=== PATIENT | female | born 1960 | race Caucasian/White ===

== ENCOUNTER 2017-04-08 09:40 | Day surgery (SDC) | payer OTHER ==
[2017-04-08 10:19] VITALS: BMI 27.4
[2017-04-08 11:14] VITALS: TEMP 98.2
[2017-04-08 12:20] VITALS: BP 142/77; PULSE 85
--- NOTE | 2017-04-09 13:25 | PATH ---
Surgical Pathology Report Patient Name: SAMANTHA PICHARDO [facility]. Rec. #: [id number] /Age/Gender: 1960 (Age: 56) / F Account: [id number] Location: [facility]-ENDOSCOPY Taken: 04/08/2017 Received: 04/08/2017 Reported: 04/09/2017 Physicians: Keven Casiano M.D. Specimen(s) Received BX ESOPHAGITIS, ULCERATED Clinical History Burning sensation in throat, dysphagia Reflux with esophagitis Final Diagnosis ESOPHAGUS, ULCERATED, BIOPSY: ULCERATED SQUAMOCOLUMNAR JUNCTIONAL MUCOSA WITH ASSOCIATED MARKED ACTIVE AND CHRONIC INFLAMMATION AND REFLUX TYPE CHANGES. NO INTESTINAL METAPLASIA (MONTEJO'S ESOPHAGUS) IDENTIFIED. NO HISTOLOGIC EVIDENCE OF VIRAL CYTOPATHIC EFFECT. NO FUNGAL ORGANISMS IDENTIFIE WITH PAS STAIN. Electronically Signed Marv Galicia M.D. Gross Description Received in formalin, labeled "biopsy esophagitis ulcerated" are 5 lopez, irregular portions of soft tissue ranging from 0.1-0.3 cm in greatest dimension. The specimens are submitted in toto in one cassette. 04/08/201704/08/2017
== END 2017-04-08 12:20 | disposition home or self-care (01) ==
LOC: JASU-ENDO 09:40
PROVIDERS: ATTEND Internal Medicine Gastroenterology
PROC: 0DB38ZX Excision of Lower Esophagus, Via Natural or Artificial Opening Endoscopic, Diagnostic (ICD-10-PCS; principal; 2017-04-08 10:00)
DX: K22.10 Ulcer of esophagus without bleeding (principal)
CPT/HCPCS: 88305-TC; 88312-TC